=== PATIENT | male | born 1975 | race Caucasian/White ===

== ENCOUNTER 2018-12-23 16:00 | Outpatient (RCR) | payer MEDICARE, SELFPAY ==
--- NOTE | 2018-12-22 17:29 | PTOPEVAL ---
Thank you for referring this patient to [facility]. Please review, sign, date and return this plan of care [facility]. I agree with and certify that the following plan of care is medically necessary. Referring Physician Date Admitting Provider: Attending Provider: PAUL PATEL Referring Provider: *PT Outpatient Evaluation Start: 12/22/18 15:12 Freq: Status: Active Protocol: Document 12/22/18 15:15 J (Rec: 12/22/18 17:18 [facility] [id number]) Therapy Assessment Status Assessment Status Assessment Status Evaluation Outpatient Past Medical History Gastrointestinal History Hx Appendectomy Yes Musculoskeletal History Hx Gout Yes Other History Hx Other Medical Conditions Yes: panic disorder, segmental dystonia, narcolepsy Evaluation Information Problem Diagnosis L eblow pain, gait disturbance Onset [id number] Cause unknown Subjective Information patient reports he is having Query Text:As Reported By Patient/ pain and swelling in the R Family knee. he reports he has had about 4 bouts of this severe pain and swelling often landing him in the ER. he reports negative blood tests of the R knee for infection. he does have gout history. he reports he has had an x-rays of the R knee. he reports no MRI of the R knee as of this date. patient reports he has been having bouts of pain and swelling in the R knee for about a year or more. Prior Level of Function Comments Additional Prior Level of Function patient reports pain in the R Comments knee for more than a year. he reports pain all the time, but reports pain does have bouts of severe intensity. he presents with deficits in ambulation and safety as he has to use a cane/rollator walker and has had several falls. he reports he has fallen 8-10 times or more in the last year. he reports he has to use cane/rollator alternating days. does not work - disability since 26
--- NOTE | 2019-01-05 14:03 | PCPTNOTE ---
01/05/19 - patient called and cancelled therapy this date. JTF
--- NOTE | 2019-01-06 14:20 | PCPTNOTE ---
01/06/19 patient did not show for scheduled appt. JOEY
--- NOTE | 2019-01-21 17:20 | PCPTNOTE ---
patient did not show for scheduled appt. i called patient and got no answer. JOEY
--- NOTE | 2019-03-23 08:46 | PCPTNOTE ---
03/23/19 - patient has not been to therapy in several weeks or months. patient has been called and no return calls have been made to finish out the POC. as of this date, patient will be DC'd from skilled PT and all progress towards goals will be taken from the most recent evaluation/note. JAMIE
== END 2019-01-20 23:59 | disposition home or self-care (01) ==
LOC: CHSPT 16:00
DX: M25.522 Pain in left elbow (principal); R26.9 Unspecified abnormalities of gait and mobility
CPT/HCPCS: 97016; 97035; 97110; 97140; 97162; 97542

== ENCOUNTER 2019-08-17 16:46 | Emergency (ER) | payer MEDICARE, SELFPAY ==
--- NOTE | ~2019-08-17 | XR_ITS ---
EXAMINATION: XR chest 2V DATE: 08/17/2019 18:14 INDICATION: Cough and shortness of breath TECHNIQUE: PA and lateral views of the chest are obtained. COMPARISON: 01/29/2013 FINDINGS: The lungs are free of acute opacities. There is no pleural effusion or pneumothorax. The ca rdiomediastinal silhouette is normal. The visualized bones and soft tissues are unremarkable. IMPRESSION: 1. No acute cardiopulmonary abnormality. Reviewed, dictated and finalized at location A.
[2019-08-17 17:01] VITALS: BP 137/88; PULSE 81; RESP 18; TEMP 36.8; O2SAT 99
--- NOTE | 2019-08-17 17:05 | ED.SOB ---
HPI - SOB/Dyspnea General Chief Complaint: Shortness of Breath/Dyspnea Stated Complaint: AMB Source: patient Mode of arrival: EMS Limitations: no limitations History of Present Illness HPI Narrative: 45-year-old male patient was brought to the ER by EMS. The patient states that for the last 2-3 days he has been experiencing cough and shortness of breath. It states that the symptoms became worse today. He denies any sputum production with the cough. He states that cough is harsh and hurts his chest. He denies any runny nose. He denies any sore throat at this time. He states that he might have had fever but is unsure because he did not have a thermometer. He denies any chills. The patient is not a smoker of cigarettes at this time although he has been a former smoker but he admits to vaping. Patient states that he has been staying home and has not had any outside contact with anybody who might have been in contact or suffered COVID. He states that whenever he leaves house is always wearing a mask. He denies anyone else visiting him to the COVID contact to his knowledge. Patient denies any nausea or vomiting states that sometimes he coughs so hard that he feels like he might vomit but he has not had any abdominal discomfort or vomiting or diarrhea. He does admit to having had a longstanding history of smoking in the past and has had some problems with his breathing in the past as well. He states that he was supposed to use CPAP for obstructive sleep apnea but apparently is not using it because of some problem with the machine that has been taken back from him. He does state that he checked all his symptoms on [employer] and felt like he needed to be seen in the ER and called the EMS. Patient is not sure about having lost his sense of taste thinks he might have some disturbance there. Related Data Home oxygen amount: none Home Medications Medication Instructions Recorded Confirmed alprazolam 0.5 mg PO QID PRN 08/17/19 08/17/19 clonazepam 0.5 mg PO QID PRN 08/17/19 08/17/19 Allergies Allergy/AdvReac Type Severity Reaction Status Date / Time hydrocodone Allergy Unknown Verified 08/17/19 17:11 Review of Systems Review of Systems: All systems reviewed & are unremarkable except as noted in HPI and below Constitutional: Constitutional: Reports as per HPI and Denies chills Eyes: Eyes: Reports as per HPI and Reports no additional eye complaints ENT: Reports system reviewed and no additional complaints, except as documented Cardiovascular: Cardiovascular: Reports as per HPI, Denies chest pain and Denies rapid heart rate Respiratory: Respiratory: Reports as per HPI, Reports chest congestion, Reports cough and Reports dyspnea Gastrointestinal: Gastrointestinal: Reports as per HPI Musculoskeletal: Musculoskeletal: Reports no additional musculoskeletal complaints Integumentary/Breasts: Skin/Breast: Reports system reviewed and no additional complaints, except as docu Neurologic: Reports system reviewed and no additional complaints, except as documented Psychiatric: Psychiatric: Reports anxiety, Reports depression, Denies homicidal ideation and Denies suicidal ideation Endocrine: Endocrine: Reports no additional endocrine complaints Hematologic/Lymphatic: Hematologic/Lymphatic: Reports no additional hematologic/lymphatic complaints Allergic/Immunologic: Allergic/Immunologic: Reports no additional allergic/immunologic complaints PMFSH Past Medical History Medical History (Updated 08/17/19 @ 18:47 by Monica Brown MD) Anxiety Depressed Narcolepsy JUAN CARLOS (obstructive sleep apnea) Surgical History Surgical History (Updated 08/17/19 @ 17:21 by Monica Brown MD) No pertinent past surgical history Social History Social History (Updated 08/17/19 @ 17:22 by Monica Brown MD) Smoking status: Former smoker Smokeless tobacco user: other Additional smoking assessment comments: vapes Substance use: unknown Living [facility]
[2019-08-17 17:45] LABS: Hemoglobin 15.5 g/dL (14.0-18.0); Mean Corpuscular Hemoglobin 33.7 pg (27.0-31.0); Mean Corpuscular Volume 93.5 fL (78.0-102.0); Mean Platelet Volume 10.7 fl (8.7-11.0); Platelet Count Result 186 K/mm3 (150-420); Red Cell Distribution Width 12.6 % (11.6-14.4); White Blood Count 7.6 K/mm3 (4.8-10.8)
[2019-08-17 18:01] LABS: Alanine Aminotransferase 27 U/L (16-63); Albumin Level 3.8 g/dL (3.4-5.0); Alkaline Phosphatase 87 U/L (46-116); Anion Gap 7.8 mmol/L (7-16); Aspartate Amino Transferase 36 U/L (15-37); Bilirubin,Total 0.8 mg/dL (0.00-1.00); Blood Urea Nitrogen 8 mg/dL (7-18); Calcium 8.8 mg/dL (8.5-10.1); Carbon Dioxide 32 mmol/L (21-32); Chloride 102 mmol/L (98-108); Estimated CRCL calculation 68 ml/min; Estimated Glomerular Filt Rate 56; Glucose 113 mg/dL (70-99); Osmolality Calculated 285 mOsm/kg (285-295); Potassium 3.8 mmol/L (3.5-5.1); Sodium 138 mmol/L (136-145); Total Protein 6.8 g/dL (6.4-8.2)
[2019-08-17 18:04] LABS: Influenza Control Valid (Valid)
[2019-08-17 19:02] VITALS: BP 136/88; PULSE 65; RESP 18; O2SAT 97
[2019-08-20 13:34] LABS: SARS-CoV-2 RNA PCR Negative
== END 2019-08-17 19:00 | disposition home or self-care (01) ==
PROVIDERS: Emergency Provider Emergency Medicine
DX: J40 Bronchitis, not specified as acute or chronic (principal); Z20.828 Contact with and (suspected) exposure to other viral communicable diseases; Z87.891 Personal history of nicotine dependence
CPT/HCPCS: 36415; 71046; 80053; 85027; 87635; 87804; 99283; C9803; U0003

== ENCOUNTER 2020-06-25 00:32 | Emergency (ER) | payer MEDICARE, SELFPAY ==
--- NOTE | 2020-06-25 00:46 | ED.EXTPRO ---
HPI - Extremity Problem General Chief complaint: Extremity Problem,Nontraumatic Stated complaint: ARM PAIN Source: patient and RN notes reviewed Mode of arrival: ambulatory Limitations: no limitations History of Present Illness HPI Narrative: patient states he has had problems with gout in his foot 10 in his knee in the past. Never had it like this in the wrist before. Says he has been having pain like this intermittently since May and today it is just much worse. Denies any injury to his right wrist. Complaint: joint swelling and joint paint Onset (ago): month(s) (1) Pain Consistency: intermittent Location: right and upper extremity ( Wrist) Quality: burning and aching Radiation: none Relieving factors: nothing Exacerbating factors: range of motion and palpation Associated symptoms: denies other symptoms Related Data Home Medications Medication Instructions Recorded Confirmed alprazolam 0.5 mg PO QID PRN 08/17/19 06/25/20 clonazepam 0.5 mg PO QID PRN 08/17/19 06/25/20 Allergies Allergy/AdvReac Type Severity Reaction Status Date / Time hydrocodone Allergy Unknown Verified 08/17/19 17:11 Review of Systems Review of Systems: All systems reviewed & are unremarkable except as noted in HPI and below Constitutional: Constitutional: Denies chills and Denies fever(s) PMFSH Past Medical History Medical History (Updated 06/25/20 @ 02:13 by Jaret Conley MD) Anxiety Depressed Narcolepsy JUAN CARLOS (obstructive sleep apnea) Surgical History Surgical History (Updated 06/25/20 @ 00:54 by Jaret Conley MD) No pertinent past surgical history Social History Social History (Updated 06/25/20 @ 00:55 by Jaret Conley MD) Smoking status: Former smoker Smokeless tobacco user: other Additional smoking assessment comments: vapes Alcohol intake: current Substance use: current Substance use type: marijuana Additional occupation/education comments: disabled Exam Const: General: healthy appearing and no acute distress Nutritional Appearance: well nourished Orientation/consciousness: patient oriented x3 HENMT: Head: normal to inspection Ears: external ears normal Eyes: Conjunctivae: conjunctivae normal Pupils: Equal, round and reactive pupils present EOM: EOMs intact bilaterally Neck: Neck: normal visual inspection Resp: Effort & Inspection: normal respiratory effort Auscultation: clear to auscultation bilaterally Cardio: Rate: regular rate Rhythm: regular rhythm GI: GI Palp: Yes Soft to palpation and No Tenderness to palpation present (GI) Auscultation: normal bowel sounds Back/Spine/Pelvis: Cervical Spine: cervical ROM normal Thoracic/Lumbar Spine: thoraco-lumbar ROM normal Skin: General skin exam: normal color Neuro: General: patient oriented x3, moves all extremities, no meningeal signs and no focal motor deficits Speech: normal speech Gait exam (Neuro): Normal gait present Extrem: Right upper extremity: wrist tenderness of the dorsal wrist and of the volar wrist, swelling of the dorsal wrist, abnormal ROM pain with active ROM during and pain with passive ROM during and warmth of the dorsal wrist Psych: Appearance: grossly normal and well kempt Mental Status: mental status grossly normal Affect: normal affect Attitude: cooperative Thought content: Yes Normal thought content present Course Vital Signs Vital signs: Vital Signs Temperature 36.8 C 06/25/20 00:56 Pulse Rate 108 H 06/25/20 00:56 Respiratory Rate 20 06/25/20 00:56 Blood Pressure 155/105 H 06/25/20 00:56 Pulse Oximetry 96 06/25/20 00:56 Temperature 36.8 C 06/25/20 02:09 Pulse Rate 84 06/25/20 02:09 Respiratory Rate 18 06/25/20 02:09 Blood Pressure 155/98 H 06/25/20 02:09 Pulse Oximetry 96 06/25/20 02:09 MDM - Extremity (Nontraumatic) Lab Data Result diagrams: 06/25/20 01:00 Labs: Lab Results 06/25/20 06/25/20 Range/Units 01:00 01:00 WBC
[2020-06-25 00:56] VITALS: BP 155/105; PULSE 108; RESP 20; TEMP 36.8; O2SAT 96
[2020-06-25 01:05] LABS: Basophils Percent Auto 0.7 % (0.0-1.0); Eosinophils Absolute Auto 0.23 K/mm3 (0.02-0.50); Eosinophils Percent Auto 1.6 % (1.0-6.0); Hematocrit 44.6 % (40.0-54.0); Immature Granulocyte Absolute 0.06 K/mm3 (0.00-0.00); Immature Granulocyte Percent A 0.4 % (0.0-0.0); Lymphocytes Absolute Auto 2.29 K/mm3 (1.10-4.50); Lymphocytes Percent Auto 16.2 % (18.0-42.0); Mean Corpuscular HGB Conc 35.9 g/dL (32.0-36.0); Mean Corpuscular Hemoglobin 31.9 pg (27.0-31.0); Mean Corpuscular Volume 88.8 fL (78.0-102.0); Mean Platelet Volume 10.5 fl (8.7-11.0); Monocytes Absolute Auto 1.07 K/mm3 (0.10-0.90); Monocytes Percent Auto 7.6 % (2.0-11.0); Neutrophils Absolute Auto 10.4 K/mm3 (1.7-7.2); Neutrophils Percent Auto 73.5 % (50.0-70.0); Platelet Count Result 225 K/mm3 (150-420); Red Blood Count 5.02 M/mm3 (4.70-6.10); Red Cell Distribution Width 13.1 % (11.6-14.4); White Blood Count 14.2 K/mm3 (4.8-10.8)
[2020-06-25] MEDS: KETOROLAC (*BKC) 60 MG/2 ML VIAL IM (01:07)
[2020-06-25 01:19] LABS: CRP 1.5 mg/dL (0.0-0.9); Uric Acid 7.9 mg/dL (3.5-7.2)
[2020-06-25 02:09] VITALS: BP 155/98; PULSE 84; RESP 18; TEMP 36.8; O2SAT 96
== END 2020-06-25 02:19 | disposition home or self-care (01) ==
PROVIDERS: Emergency Provider Emergency Medicine; PCP Internal Medicine
DX: M10.031 Idiopathic gout, right wrist (principal)
CPT/HCPCS: 36415; 84550; 85025; 86140; 96372; 99283; J1885

== ENCOUNTER 2020-06-28 14:01 | Outpatient (CLI) | payer MEDICARE, SELFPAY ==
--- NOTE | ~2020-06-28 | XR_ITS ---
EXAMINATION: XR wrist RT min 3V DATE: 06/28/2020 14:16 INDICATION: Right wrist arthritis presenting with chronic pain and swelling. TECHNIQUE: Posteroanterior, ulnar deviation, oblique, and lateral views of the right wrist were obtai jovita. COMPARISON: none FINDINGS: Alignment is normal. No fracture. Mild polyarticular osteoarthritis involving the wrist, midcarpal, t riscaphe and first carpal metacarpal joints. No erosions to suggest inflammatory arthritis. Mild soft tissue swelling about the dorsal aspect of the carpus. IMPRESSION: 1. 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 No acute osseous abnormality. Reviewed, dictated and finalized at location A. IMPRESSION: 1. 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 No acute osseo us abnormality.
== END 2020-06-28 14:02 | disposition home or self-care (01) ==
LOC: CHSIMG 14:05
PROVIDERS: PCP Internal Medicine; Visit Provider Internal Medicine
DX: M19.031 Primary osteoarthritis, right wrist (principal)
CPT/HCPCS: 73110

== ENCOUNTER 2021-06-22 14:51 | Outpatient (CLI) | payer MEDICARE, SELFPAY ==
--- NOTE | ~2021-06-22 | XR_ITS ---
XR shoulder LT min 2V DATE: 06/22/2021 15:14 INDICATION: Left shoulder pain, limited motion TECHNIQUE: 4 views COMPARISON: None FINDINGS: No fracture or dislocation, periosteal reaction or bone destruction or abnormal soft tissue calcification. IMPRESSION: Negative Reviewed, dictated and finalized at location A. IMPRESSION: Negative
[2021-06-22 15:04] LABS: Basophils Absolute Auto 0.06 K/mm3 (0.00-0.10); Basophils Percent Auto 0.7 % (0.0-1.0); Eosinophils Absolute Auto 0.22 K/mm3 (0.02-0.50); Eosinophils Percent Auto 2.7 % (1.0-6.0); Hematocrit 43.4 % (40.0-54.0); Immature Granulocyte Absolute 0.03 K/mm3 (0.00-0.00); Immature Granulocyte Percent A 0.4 % (0.0-0.0); Lymphocytes Absolute Auto 1.79 K/mm3 (1.10-4.50); Lymphocytes Percent Auto 21.7 % (18.0-42.0); Mean Corpuscular HGB Conc 34.6 g/dL (32.0-36.0); Mean Corpuscular Volume 89.7 fL (78.0-102.0); Mean Platelet Volume 9.9 fl (8.7-11.0); Monocytes Absolute Auto 0.53 K/mm3 (0.10-0.90); Monocytes Percent Auto 6.4 % (2.0-11.0); Neutrophils Absolute Auto 5.6 K/mm3 (1.7-7.2); Neutrophils Percent Auto 68.1 % (50.0-70.0); Platelet Count Result 201 K/mm3 (150-420); Red Blood Count 4.84 M/mm3 (4.70-6.10); Red Cell Distribution Width 13.8 % (11.6-14.4); White Blood Count 8.2 K/mm3 (4.8-10.8)
[2021-06-22 15:20] LABS: Alanine Aminotransferase 13 U/L (16-63); Albumin Level 3.8 g/dL (3.4-5.0); Alkaline Phosphatase 108 U/L (46-116); Anion Gap 4 mmol/L (8-16); Aspartate Amino Transferase 18 U/L (15-37); Bilirubin,Total 0.9 mg/dL (0.00-1.00); Blood Urea Nitrogen 10 mg/dL (7-18); CRP 0.9 mg/dL (0.0-0.9); Calcium 8.6 mg/dL (8.5-10.1); Carbon Dioxide 34 mmol/L (21-32); Chloride 101 mmol/L (98-108); Estimated Glomerular Filt Rate > 60; Glucose 100 mg/dL (70-99); Osmolality Calculated 287 mOsm/kg (285-295); Potassium 3.7 mmol/L (3.5-5.1); Sodium 139 mmol/L (136-145); Total Protein 7.3 g/dL (6.4-8.2); Uric Acid 9.4 mg/dL (3.5-7.2)
== END 2021-06-22 14:52 | disposition home or self-care (01) ==
LOC: CHSIMG 14:53
PROVIDERS: PCP Internal Medicine; Visit Provider Internal Medicine
DX: M25.512 Pain in left shoulder (principal); M10.9 Gout, unspecified
CPT/HCPCS: 36415; 73030; 80053; 84550; 85025; 86140

== ENCOUNTER 2022-10-15 16:03 | Outpatient (CLI) | payer MEDICARE, SELFPAY ==
--- NOTE | ~2022-10-15 | XR_ITS ---
XR chest 2V DATE: 10/15/2022 16:20 INDICATION: Dyspnea, wheezing. TECHNIQUE: PA and lateral views COMPARISON: 08/17/2019 PA and lateral chest FINDINGS: Normal heart size. No hilar or mediastinal enlargement. No pulmonary infiltrate or consolid ation, pleural effusion or pulmonary vascular congestion or pneumothorax. Minimal thoracic dextroscol iosis. IMPRESSION: No active cardiopulmonary disease Reviewed, dictated and finalized at location L.
== END 2022-10-15 16:04 | disposition home or self-care (01) ==
LOC: CHSIMG 16:05
PROVIDERS: PCP Internal Medicine; Visit Provider Internal Medicine
DX: R06.00 Dyspnea, unspecified (principal); M10.9 Gout, unspecified
CPT/HCPCS: 71046

== ENCOUNTER 2023-01-30 12:07 | Outpatient (CLI) | payer MEDICARE, MEDICAID, SELFPAY ==
--- NOTE | ~2023-01-30 | XR_ITS ---
Right Knee Technique: AP, lateral, and sunrise views were obtained. Clinical History: Pain COMPARISON: 12/09/2018 Findings: No fracture or dislocation is seen. There is somewhat heterogeneous appearance of the shaw la. Osseous alignment is anatomic. Joint spaces are preserved without degenerative or erosive change. Soft tissues are unremarkable. No joint effusion is seen. Impression: Somewhat heterogeneous appearance of the patella. This could be due to osteopenia, however if there i s concern for infiltrative marrow lesion, such as neoplasm or infection, then MR would be recommended for further evaluation. Reviewed, dictated and finalized at location . [employer] Impression: Somewhat heterogeneous appearance of the patella. This could be due to osteopen ia, however if there is concern for infiltrative marrow lesion, such as neoplas m or infection, then MR would be recommended for further evaluation.
== END 2023-01-30 12:08 | disposition home or self-care (01) ==
LOC: CHSIMG 12:09
PROVIDERS: PCP Internal Medicine; Visit Provider Internal Medicine
DX: M17.11 Unilateral primary osteoarthritis, right knee (principal)
CPT/HCPCS: 73562